=== PATIENT | male | born 1975 | race Caucasian/White ===

== ENCOUNTER 2020-08-22 14:14 | Emergency (ER) | payer OTHER, SELFPAY ==
--- NOTE | ~2020-08-22 | CT_ITS ---
EXAMINATION: CT HEAD/BRAIN WITHOUT CONTRAST CLINICAL INFORMATION: Headaches COMPARISON: August 25, 2018 TECHNIQUE: CT scanning from base of skull to vertex performed without IV contrast administration. DLP: 766 mGy-cm. FINDINGS: The ventricles, sulci, and cisterns appear unremarkable. No abnormal extra-axial fluid collection or intracranial hemorrhage is seen. No significant mass effect or midline structure shift is evident. There is some mild low density seen along the posterior aspect of the right extreme capsule which could possibly represent an old lacunar infarct but is equivocal. This appears to be present on previous CT scan of August 25, 2018. Visualized paranasal sinuses and mastoid air cells are well aerated. CT/CT cervical spine wo con IMPRESSION: No acute intracranial disease. EXAMINATION: CT OF THE CERVICAL SPINE CLINICAL INFORMATION: Neck pain COMPARISON: May 16, 2019. TECHNIQUE: Thin helical images with sagittal and coronal reformats. DOSE: DLP 742 mGy-cm. FINDINGS: No abnormal prevertebral soft tissue swelling is seen. No acute cervical spine fracture is noted. There is some mild degenerative change at the C6-C7 disc space level with mild spurring of the joints of Luschka causing some anterior neural foramina encroachment but not of a significant degree. Paraspinal fat planes are maintained. Pterygoid plates are intact. No significant abnormality upper mandibular joints noted. IMPRESSION: No significant bony abnormality of the cervical spine.
--- NOTE | ~2020-08-22 | CT_ITS ---
EXAMINATION: CT HEAD/BRAIN WITHOUT CONTRAST CLINICAL INFORMATION: Headaches COMPARISON: August 25, 2018 TECHNIQUE: CT scanning from base of skull to vertex performed without IV contrast administration. DLP: 766 mGy-cm. FINDINGS: The ventricles, sulci, and cisterns appear unremarkable. No abnormal extra-axial fluid collection or intracranial hemorrhage is seen. No significant mass effect or midline structure shift is evident. There is some mild low density seen along the posterior aspect of the right extreme capsule which could possibly represent an old lacunar infarct but is equivocal. This appears to be present on previous CT scan of August 25, 2018. Visualized paranasal sinuses and mastoid air cells are well aerated. CT/CT head/brain wo con IMPRESSION: No acute intracranial disease. EXAMINATION: CT OF THE CERVICAL SPINE CLINICAL INFORMATION: Neck pain COMPARISON: May 16, 2019. TECHNIQUE: Thin helical images with sagittal and coronal reformats. DOSE: DLP 742 mGy-cm. FINDINGS: No abnormal prevertebral soft tissue swelling is seen. No acute cervical spine fracture is noted. There is some mild degenerative change at the C6-C7 disc space level with mild spurring of the joints of Luschka causing some anterior neural foramina encroachment but not of a significant degree. Paraspinal fat planes are maintained. Pterygoid plates are intact. No significant abnormality upper mandibular joints noted. IMPRESSION: No significant bony abnormality of the cervical spine.
[2020-08-22 14:24] VITALS: BP 183/114; PULSE 120; RESP 18; TEMP 36.6; O2SAT 97; BMI 30.4
[2020-08-22 14:52] VITALS: BP 154/89; PULSE 90
--- NOTE | 2020-08-22 15:14 | ED.NECK ---
HPI - Neck Pain/Injury General Chief Complaint: Neck Pain/Injury Stated Complaint: neck swelling Time Seen by Provider: 08/22/20 15:01 History of Present Illness HPI Narrative: Patient with chronic neck pain complains that his pain has been exacerbated over the past 2 weeks, he also complains of feeling dizzy and anxious and having headaches, denies any new trauma, denies radiation of the pain denies any numbness or weakness or changes to bowel or bladder no fever chills The headache is described as a heavy feeling in the top of his head that is mildly painful that he has not had before, it is gradual in onset not associated with injury or fever, there is no vision change Related Data Previous Rx's Medication Instructions Recorded [id number] 3.3 4 drp OTIC (EAR) RIGHT QID #10 ml 03/23/20 mg-3 mg-10 mg-0.5 mg/mL ear drops,susp lisinopril 10 mg tablet 10 mg PO DAILY 90 Days #90 tab 05/19/20 trazodone 100 mg tablet 100 mg PO BEDTIME PRN 90 Days #90 06/06/20 tab diazepam 10 mg tablet 10 mg PO ONCE PRN 1 Days #1 tab 08/06/20 lidocaine 5 % topical patch 1 patch TOPICAL DAILY #15 ea 08/06/20 prednisone 20 mg tablet 20 mg PO DAILY 9 Days #18 tab 08/06/20 dexamethasone 4 mg tablet 4 mg PO .COMPLEX #18 tab 08/13/20 gabapentin 100 mg capsule 100 mg PO TID #90 cap 08/13/20 diazepam [Valium] 10 mg PO TID PRN #7 tab 08/22/20 ibuprofen 600 mg PO Q6H PRN #20 tab 08/22/20 oxycodone-acetaminophen [Percocet] 1 tab PO Q4-6H PRN #10 tab 08/22/20 Allergies Allergy/AdvReac Type Severity Reaction Status Date / Time No Known Allergies Allergy Verified 08/22/20 14:27 [No Known Allergies*] Review of Systems Review of Systems: Positive for neck pain negatives are no fever no chills no dizziness no weakness no vision change no photophobia no radiation of pain no numbness or weakness no changes to bowel or bladder no chest pain no shortness of breath no abdominal pain no nausea no vomiting no diarrhea no dysuria no incontinence no skin rash no numbness or weakness [facility] Past Medical History [facility] Narrative: Patient has long history of chronic neck pain with periodic flares Source: nursing notes reviewed Medical History (Updated 08/23/20 @ 00:01 by Crystal Li) No known health problems Social History Social History Advance Directives: Yes Advance Directives Information Provided: No Advance Directives on File: No Physical Exam Vital Signs: Vital Signs: Last Vital Signs Temp 97.8 F 08/22/20 14:24 Pulse 90 08/22/20 14:52 Resp 18 08/22/20 14:24 BP 154/89 H 08/22/20 14:52 Pulse Ox 97 08/22/20 14:24 Body Mass Index 30.4 General appearance no acute distress, uncomfortable, comp and cooperative Head is normocephalic atraumatic, pupils equal round reactive to light, extraocular motions intact The neck has tenderness both medial lateral soft tissue and midline, no masses palpated no redness or warmth to the skin, skin is intact, pain is easily reproduced with movement of the head The chest is clear to auscultation bilaterally full symmetrical breath sounds The chest wall is not tender The heart rate and rhythm regular no murmur Abdomen soft nontender Extremities full range of motion x4 Neuro comprehension and expression are normal, balance and gait are normal, motor is 5/5 x4, no motor deficit, sensation is intact and symmetrical in hands and feet, cerebellar is normal, cranial nerves 2-12 intact as tested, no facial asymmetry Course Course Course Narrative: CT scan of the neck showed some arthritis but no acute change no evidence of any mass The head CT was normal no mass no bleed Patient was treated for musculoskeletal neck pain, advised to follow up with primary doctor for possible referral to specialist and headache will be treated with analgesics as well, no sign of bleed or mass, no neurologic deficit Discharge Plan Discharge Clinical Impression: Posterior neck pain, Frequent headaches Patient Disposition: Home, Self-Care Additional Instructions: CT of the neck showed some arthritis and head CT was normal no sign of any acute or dangerous condition on either scan Follow with primary doctor for further evaluation Referral to pain management or to a speciallist may be helpful Return any concerns Prescriptions: New oxycodone-acetaminophen [Percocet] 5-325 mg tablet 1 tab PO Q4-6H PRN (Reason: pain) Qty: 10 RF: 0 diazepam [Valium] 10 mg tablet 10 mg PO TID PRN (Reason: muscle spasm) Qty: 7 RF: 0 ibuprofen 600 mg tablet 600 mg PO Q6H PRN (Reason: pain) Qty: 20 RF: 0 No Action Cortisporin-TC 3.3-3-10-0.5 mg/mL drops,suspension 4 drp otic (ear) right QID Qty: 10 RF: 0 lisinopril 10 mg tablet 10 mg PO DAILY 90 Days Qty: 90 RF: 3 trazodone 100 mg tablet 100 mg PO BEDTIME PRN (Reason: sleep) 90 Days Qty: 90 RF: 1 prednisone 20 mg tablet 20 mg PO DAILY 9 Days Qty: 18 RF: 0 lidocaine 5 % adhesive patch,medicated 1 patch topical DAILY Qty: 15 RF: 0 diazepam 10 mg tablet 10 mg PO ONCE PRN (Reason: testing anxiety) 1 Days Qty: 1 RF: 0 dexamethasone 4 mg tablet 4 mg PO .COMPLEX Qty: 18 RF: 0 gabapentin 100 mg capsule 100 mg PO TID Qty: 90 RF: 0 Interventions: ED Discharge Assessment Last Done: 08/22/20 17:11 Discharge Date/Time: 08/22/20 17:12
[2020-08-22] MEDS: Ketorolac Tromethamine 30 MG/ML VIAL IM (17:10)
== END 2020-08-22 17:12 | disposition home or self-care (01) ==
PROVIDERS: Emergency Provider Emergency Medicine; PCP Nurse Practitioner Family
DX: M54.2 Cervicalgia (principal); R51.9 Headache, unspecified; F41.9 Anxiety disorder, unspecified
CPT/HCPCS: 70450; 72125; 96372; 99284; J1885

== ENCOUNTER 2020-11-20 09:22 | Outpatient (REF) | payer OTHER, SELFPAY ==
[2020-11-20 11:52] LABS: Alanine Aminotransferase 29 U/L (0-40); Albumin Level 4.7 g/dL (3.5-5.0); Alkaline Phosphatase 72 U/L (39-117); Anion Gap 16 (12-20); Aspartate Amino Transferase 27 U/L (5-37); Bilirubin Total 0.3 mg/dL (0.0-1.0); Blood Urea Nitrogen 12 mg/dL (9-16); Calcium 9.9 mg/dL (8.4-10.2); Carbon Dioxide 23 mmol/L (22-29); Chloride 106 mmol/L (96-108); Cholesterol 315 mg/dL; Estimated Glomerular Filt Rate > 60; Glucose Fasting 151 mg/dL (60-99); HDL Cholesterol 48 mg/dL; LDL Cholesterol Calculated 195 mg/dl; Potassium 3.9 mmol/L (3.3-5.1); Sodium 141 mmol/L (135-145); Total Protein 7.8 g/dL (6.5-8.0); Triglycerides 362 mg/dL
[2020-11-20 12:16] LABS: TSH reflex Free T4 1.14 uIU/mL (0.32-4.0)
== END 2020-11-20 09:23 | disposition home or self-care (01) ==
LOC: HO.HMGCLDS 09:22
PROVIDERS: PCP Nurse Practitioner Family; Visit Provider Nurse Practitioner Family
DX: I10 Essential (primary) hypertension (principal)
CPT/HCPCS: 36415; 80053; 80061; 84443

== ENCOUNTER 2020-12-13 14:15 | Outpatient (REF) | payer OTHER, SELFPAY ==
[2020-12-13 17:07] LABS: Estimated Average Glucose 194 mg/dL; Hemoglobin A1c % 8.4 %
[2020-12-13 17:15] LABS: Cholesterol 362 mg/dL; HDL Cholesterol 46 mg/dL; Triglycerides 447 mg/dL
== END 2020-12-13 14:16 | disposition home or self-care (01) ==
LOC: HO.HMGCLDS 14:15
PROVIDERS: PCP Nurse Practitioner Family; Visit Provider Nurse Practitioner Family
DX: E78.5 Hyperlipidemia, unspecified (principal); R73.01 Impaired fasting glucose
CPT/HCPCS: 36415; 80061; 83036

== ENCOUNTER 2021-08-11 11:51 | Outpatient (REF) | payer OTHER, SELFPAY ==
[2021-08-11 13:51] LABS: Appearance Urine CLEAR; Color Urine YELLOW; Glucose Urine UA NEG (NEG); Leukocyte Esterase Urine NEG (NEG); Nitrite Urine NEG (NEG); PH 5.5 (5.0-8.0); Specific Gravity - Urine >= 1.030 (1.005-1.025); Urine Blood NEG (NEG); Urine Ketones NEG (NEG); Urine Protein NEG (NEG-TRACE)
[2021-08-11 14:11] LABS: Alanine Aminotransferase 21 U/L (0-40); Albumin Level 4.5 g/dL (3.5-5.0); Alkaline Phosphatase 64 U/L (39-117); Anion Gap 15 (12-20); Aspartate Amino Transferase 20 U/L (5-37); Bilirubin Total 0.5 mg/dL (0.0-1.0); Blood Urea Nitrogen 30 mg/dL (9-16); Calcium 10.3 mg/dL (8.4-10.2); Carbon Dioxide 20 mmol/L (22-29); Chloride 104 mmol/L (96-108); Cholesterol 175 mg/dL; Estimated Glomerular Filt Rate 54; Glucose Fasting 139 mg/dL (60-99); HDL Cholesterol 48 mg/dL; LDL Cholesterol Calculated 104 mg/dl; Potassium 4.1 mmol/L (3.3-5.1); Sodium 135 mmol/L (135-145); Total Protein 7.9 g/dL (6.5-8.0); Triglycerides 117 mg/dL
[2021-08-11 14:32] LABS: TSH reflex Free T4 0.75 uIU/mL (0.32-4.0)
[2021-08-11 14:42] LABS: Estimated Average Glucose 134 mg/dL; Hemoglobin A1c % 6.3 %
[2021-08-11 14:54] LABS: Creatinine Urine 211.02 mg/dL; Microalbum/Creatinine Ratio Ur 6.6 ug/mg cr
== END 2021-08-11 11:52 | disposition home or self-care (01) ==
LOC: HO.HMGCLDS 11:51
PROVIDERS: PCP Nurse Practitioner Family; Visit Provider Nurse Practitioner Family
DX: E11.9 Type 2 diabetes mellitus without complications (principal)
CPT/HCPCS: 36415; 80053; 80061; 81003; 82043; 83036; 84443

== ENCOUNTER → 2021-10-02 14:30 | Outpatient (RCR) | payer OTHER, SELFPAY | END | disposition home or self-care (01) | LOC: HO.PTCHIC 09-24 14:06 | PROVIDERS: PCP Nurse Practitioner Family; Visit Provider Nurse Practitioner Family | DX: M50.90 Cervical disc disorder, unspecified, unspecified cervical region (principal) ==

== ENCOUNTER 2021-11-12 11:29 | Outpatient (REF) | payer OTHER, SELFPAY ==
--- NOTE | ~2021-11-12 | XR_ITS ---
EXAMINATION: XR LUMBOSACRAL SPINE CLINICAL INFORMATION: Low back pain. COMPARISON: 05/16/2019 TECHNIQUE: Three views of the lumbosacral spine. FINDINGS: Relative straightening of the lumbar lordosis. No change in minimal retrolisthesis of L5 on S1. Vertebral body heights and intervertebral disc spaces are maintained. Sacroiliac joints are intact. XR/XR lumbar spine 2-3V IMPRESSION: No acute abnormality.
== END 2021-11-12 11:30 | disposition home or self-care (01) ==
LOC: HO.HMGCX 11:29
PROVIDERS: Visit Provider Nurse Practitioner Family
DX: M54.50 Low back pain, unspecified (principal); E11.9 Type 2 diabetes mellitus without complications
CPT/HCPCS: 72100

== ENCOUNTER 2023-01-18 08:09 | Outpatient (REF) | payer OTHER, SELFPAY ==
[2023-01-18 11:27] LABS: MANUAL DIFF FLAG NO
[2023-01-18 11:38] LABS: Appearance Urine Clear; Color Urine Yellow; Glucose Urine UA Negative (Negative); Leukocyte Esterase Urine Negative (Negative); Nitrite Urine Negative (Negative); PH 5.5 (5.0-9.0); Urine Blood Negative (Negative); Urine Ketones Negative (Negative); Urine Protein Negative (Neg-Trace)
[2023-01-18 12:05] LABS: Basophils Absolute Auto 0.1 X10*3/uL (0.0-0.2); Eosinophils Absolute Auto 0.4 X10*3/uL (0.0-0.4); Eosinophils Percent Auto 4.9 % (0-4); Hematocrit 46.9 % (42.0-52.0); Hemoglobin 15.8 g/dl (14.0-18.0); Imm Gran Abs Auto 0.02 X10*3/uL (0.00-0.03); Imm Gran Pct Auto 0.3 % (0.0-0.4); Lymphocytes Absolute Auto 3.4 X10*3/uL (1.2-4.9); Lymphocytes Percent Auto 44.4 % (20-40); Mean Corpuscular HGB Conc 33.7 g/dl (31.0-36.0); Mean Corpuscular Hemoglobin 28.7 pg (27.0-33.0); Mean Corpuscular Volume 85.3 fL (80.0-98.0); Mean Platelet Volume 11.1 fL (9.4-12.4); Monocytes Absolute Auto 0.7 X10*3/uL (0.1-1.2); Monocytes Percent Auto 9.3 % (2-11); Neutrophils Absolute Auto 3.1 x10*3/uL (2.0-8.3); Neutrophils Percent Auto 40.1 % (45-73); Platelet Count 230 X10*3/uL (160-400); Red Cell Distribution Width 13.4 % (11.0-16.0); White Blood Count 7.7 X10*3/uL (4.8-10.8)
[2023-01-18 12:27] LABS: Alanine Aminotransferase 16 U/L (0-40); Albumin Level 4.3 g/dL (3.5-5.0); Alkaline Phosphatase 78 U/L (39-117); Anion Gap 11 (12-20); Aspartate Amino Transferase 21 U/L (5-37); Bilirubin Total 0.3 mg/dL (0.0-1.0); Blood Urea Nitrogen 12 mg/dL (9-16); Calcium 10.2 mg/dL (8.4-10.2); Carbon Dioxide 25 mmol/L (22-29); Chloride 107 mmol/L (96-108); Cholesterol 267 mg/dL (<200); Estimated Glomerular Filt Rate > 60; Glucose Fasting 126 mg/dL (60-99); HDL Cholesterol 36 mg/dL (>40); LDL Cholesterol Calculated 198 mg/dL (<100); Potassium 3.9 mmol/L (3.3-5.1); Sodium 139 mmol/L (135-145); Total Protein 7.6 g/dL (6.5-8.0); Triglycerides 167 mg/dL (<150)
[2023-01-18 12:31] LABS: TSH reflex Free T4 1.66 uIU/mL (0.32-4.0)
[2023-01-18 12:46] LABS: Estimated Average Glucose 131 mg/dL; Hemoglobin A1c % 6.2 % (<6.0)
== END 2023-01-18 08:10 | disposition home or self-care (01) ==
LOC: HO.HMGCLDS 08:09
PROVIDERS: PCP Nurse Practitioner Family; Visit Provider Nurse Practitioner Family
DX: E11.9 Type 2 diabetes mellitus without complications (principal)
CPT/HCPCS: 36415; 80053; 80061; 81003; 83036; 84443; 85025

== ENCOUNTER 2023-01-28 07:36 | Outpatient (AMB) | payer OTHER, SELFPAY ==
--- NOTE | 2023-01-28 07:39 | MHC.PC.OV ---
Vital Signs 01/28/23 07:40 Height 5 ft 8 in Weight 191 lb 4 oz BMI 29.1 BP 102/74 Blood Pressure Location Rt brachial Position Sitting Pulse 69 Pulse Source Pulse Oximeter Pulse Oximetry (%) 96 Oxygen Delivery Method Room Air Intake Visit Reasons: Physical exam Allergies No Known Allergies [No Known Allergies*] Allergy (Verified 01/28/23 07:41) Medication List - Last Reconciled 01/28/23 by MICHAEL Davison alcohol swabs (Alcohol Pads) 1 pad topical BID 30 days amlodipine 10 mg PO DAILY atorvastatin 80 mg PO BEDTIME 90 days blood sugar diagnostic (FreeStyle Lite Strips) test BS BID blood-glucose meter (FreeStyle Lite Meter kit) As directed blood-glucose meter (FreeStyle Lite Meter kit) test BS BID hydrochlorothiazide 12.5 mg PO DAILY ibuprofen 600 mg PO Q6H PRN lancets (FreeStyle Lancets) test BS BID lidocaine 5% 1 patch topical DAILY lisinopril 20 mg PO DAILY 90 days metformin 500 mg PO BID trazodone 100 mg PO BEDTIME PRN 90 days Tobacco use date assessed: 01/28/23 Dental Screening Dental Screen Date: 01/28/23 Did you have a dental visit in the last 12 months?: No Did you have a dental problem in the last 6 months where you did not have access to dental care?: No Was dental information given to patient?: No HPI Physical exam HPI Details Pt is here for a PE. Labs were already performed. Due for colon screen, will refer to GI. Pt is a diabetic, on an ASHWIN and a statin. Last A1C was 6.2. Due for microalbumin. Denies polyuria, polydipsia, does report intermittent neuropathy. Pt denies any signs and symptoms of hypoglycemia and does know how to correct it. Dyslipidemia: Pt's lipids were elevated. He reports that he does not take his atorvastatin 80mg every day, reenforced importance of this. Will also send zetia 10mg. Pt c/o dizziness upon standing. ? hypotension. Will decrease lisinopril from 20mg to 10mg. SS/disability paperwork filled out for his cervical neck issues. He currently follows up with [facility]. [facility] Medical History (Updated 01/28/23 @ 08:56 by MICHAEL Davison) Bulging discs DDD (degenerative disc disease), cervical No known health problems Polyneuropathy Social History Housing: Apartment Alcohol intake: former Patient Tobacco Use Status: Former Tobacco user Years Smoked: quit 10 years or more e-Cigarette/Vaping Use: Never Used Second Hand Smoke Exposure: No Current occupational status: disabled Cognitive needs: No Hearing needs: No Vision needs: No Questionnaire Thrive Questionnaire Date Thrive assessed: 08/11/21 AUDIT C Alcohol Use Questionnaire (AUDIT-C) 1. How often do you have a drink containing alcohol?: Never Total Score: 0 DANY-7 AMB Questionnaire DANY-7 Date DANY - 7 assessed: 08/11/21 Source: Developed by Drs. Guicho Greenwood, Jeniffer Fitzpatrick, Austin Limon and colleagues, with an educational osmin from [employer]. Review of Systems Const Denies chills and Denies fever(s) Eyes Denies blurry vision ENT Denies vertigo, Reports dizziness and Denies sore throat Card Denies chest pain at rest, Denies chest pain with activity, Denies diaphoresis, Denies dyspnea and Denies dyspnea on exertion Resp Denies cough, Denies dyspnea, Denies dyspnea on exertion and Denies wheezing GI Denies abdominal pain, Denies melena, Denies hematochezia, Denies constipation, Denies diarrhea and Denies loose stools Denies hematuria Musc Reports numbness and Reports tingling Skin/Breast Denies lesions Neuro Denies vertigo, Reports dizziness, Reports numbness and Reports tingling Psych Denies anxiety, Denies depression, Denies homicidal ideation, Denies suicidal ideation and Denies other (substance abuse) Aller/Immun Denies wheezing Physical exam (Primary Care) Vital Signs: Last Vital Signs Pulse 69 01/28/23 07:40 BP 102/74 01/28/23 07:40 Pulse Ox 96 01/28/23 07:40 Oxygen Delivery Method Room Air 01/28/23 07:40 BMI result Body Mass Index 29.1 Tobacco/Smoking Status: Tobacco use Status Tobacco use date assessed 01/28/23 01/28/23 07:43 Patient Tobacco Use Status Former Tobacco user 01/28/23 07:43 e-Cigarette/Vaping Use Never Used 01/28/23 07:43 Thrive Assessment: Date of Thrive Assessment Date Thrive assessed 08/11/21 01/28/23 07:43 Const General: cooperative Nutritional Appearance: well nourished Orientation/consciousness: patient oriented x3 HENMT Head: Yes normal to inspection, Yes normocephalic and Yes atraumatic Ears: TM's normal bilaterally Eyes General: appearance normal, both eyes and all related structures Alignment and Position: alignment normal and position normal Neck Neck: Yes normal visual inspection and Yes no lymphadenopathy Thyroid: Thyroid normal Resp Effort & Inspection: normal respiratory effort Auscultation: clear to auscultation bilaterally Cardio Rate: regular rate Rhythm: regular rhythm Heart sounds: S1 normal heart sound present, S2 normal heart sound present and no murmurs GI Palpation (GI): Soft to palpation and nontender Auscultation: normal bowel sounds Male General Exam: Yes normal external exam Penis: normal penis Scrotum: scrotum normal, testes descended bilaterally and no inguinal hernias Testes: no testicular mass Skin Rashes: no rashes Neuro General: patient oriented x3, moves all extremities, no focal motor deficits and deep tendon reflexes 2+ bilaterally Romberg Test: Negative Extrem Other: bilat feet: + sensation with use of monofilament Psych Appearance: grossly normal Mental Status: mental status grossly normal Speech and movement: Normal speech and movement present Affect: normal affect Attitude: cooperative Thought process: Normal thought process present Thought content: Normal thought content present Insight: Good insight present (Psych) Judgement: Good judgement present (Psych) Assessment and Plan Assessment & Plan (1) Screening for colon cancer: Code(s): Z12.11 - Encounter for screening for malignant neoplasm of colon Plan: Referred to GI (2) DDD (degenerative disc disease), cervical: Code(s): M50.30 - Other cervical disc degeneration, unspecified cervical region (3) Cervical neck pain with evidence of disc disease: Code(s): M50.90 - Cervical disc disorder, unspecified, unspecified cervical region (4) Hypotension: Code(s): I95.9 - Hypotension, unspecified (5) Dyslipidemia: Code(s): E78.5 - Hyperlipidemia, unspecified (6) Physical exam: Code(s): Z00.00 - Encounter for general adult medical examination without abnormal findings Plan The patient agreed to the use of a biomedical engineering supervisor for this encounter. Scribed for Apolinar Hicks, [employer]ERK- by Cristal Butler biomedical engineering supervisor, on 01/28/2023 at 07:50 EST. Orders: Orders Microalbumin, Random (w Creat) Today E11.9 - Type 2 diabetes mellitus without complications Comprehensive [place]. Panel Fast 2 Months E78.5 - Hyperlipidemia, unspecified Lipid Panel 2 Months E78.5 - Hyperlipidemia, unspecified Referrals Gastroenterology Referral Z12.11 - Encounter for screening for malignant neoplasm of colon Medications: New ezetimibe 10 mg PO DAILY 90 days 90 tabs 0RF Changed From lisinopril 20 mg PO DAILY 90 days 90 tabs 1RF I10 - Essential (primary) hypertension To lisinopril 10 mg PO DAILY 90 days 90 tabs 1RF I10 - Essential (primary) hypertension Coding Level of Care Code Est Pt Prev Care 40-64y(45273) Diagnoses Screening for colon cancer Z12.11 DDD (degenerative disc disease), cervical M50.30 Cervical neck pain with evidence of disc disease M50.90 Hypotension I95.9 Dyslipidemia E78.5 Physical exam Z00.00
[2023-01-28 07:40] VITALS: BP 102/74; PULSE 69; O2SAT 96; BMI 29.1
== END 2023-01-28 08:22 | disposition home or self-care (01) ==
PROVIDERS: Visit Provider Nurse Practitioner Family
DX: Z12.11 Encounter for screening for malignant neoplasm of colon (principal); M50.30 Other cervical disc degeneration, unspecified cervical region; M50.90 Cervical disc disorder, unspecified, unspecified cervical region; I95.9 Hypotension, unspecified; E78.5 Hyperlipidemia, unspecified; Z00.00 Encounter for general adult medical examination without abnormal findings
CPT/HCPCS: 99396

== ENCOUNTER 2023-01-28 08:23 | Outpatient (REF) | payer OTHER, SELFPAY ==
[2023-01-28 12:53] LABS: Microalbumin Urine < 5.0 mg/L
== END 2023-01-28 08:24 | disposition home or self-care (01) ==
LOC: HO.HMGCLDS 08:23
PROVIDERS: PCP Nurse Practitioner Family; Visit Provider Nurse Practitioner Family
DX: E11.9 Type 2 diabetes mellitus without complications (principal)
CPT/HCPCS: 82043

== ENCOUNTER 2023-02-17 11:23 | Outpatient (AMB) | payer OTHER, SELFPAY ==
--- NOTE | 2023-02-17 11:25 | A.OFFVIS_ITS ---
Intake Vital Signs 02/17/23 11:27 Height 5 ft 8 in Weight 187 lb 13.341 oz BMI 28.6 BP 140/78 H Blood Pressure Location Lt brachial Position Sitting Pulse 74 Pulse Source Pulse Oximeter Pulse Oximetry (%) 98 Intake Visit Reasons: [place] screening Intake Note: Patient here in the office for a consult for the colonoscopy screening Allergies No Known Allergies [No Known Allergies*] Allergy (Verified 02/17/23 11:32) HPI [place] screening HPI Details 47 year old? male with past medical hist ory of hypertension, dyslipidemia, cervical neck pain, degenerative disc disease, diabetes, bulging disc is here today for pre colonoscopy screening.? Patient was sent to us by his PCP.? This is his first colonoscopy screening.? Patient denies any gastrointestinal symptoms in the past or at present.? Denies any personal or family history of gastrointestinal disease, colon polyps, or cancer.? Denies history of difficulty with sedation or anesthesia in the past.? Negative for history of sleep apnea.? Denies any history of cardiac, renal, pulmonary, or hepatic disease.?? No history of infectious? diseases like hepatitis A, B, C, HIV or tuberculosis.? Patient is not on any anticoagulation therapy. [facility] Medical History (Updated 01/28/23 @ 08:56 by MICHAEL Davison) Polyneuropathy Bulging discs DDD (degenerative disc disease), cervical No known health problems Social History Housing: Apartment Alcohol intake: former Patient Tobacco Use Status: Former Tobacco user Years Smoked: quit 10 years or more e-Cigarette/Vaping Use: Never Used Second Hand Smoke Exposure: No Current occupational status: disabled Cognitive needs: No Hearing needs: No Vision needs: No Review of Systems Const Denies weight gain and Denies weight loss ENT Reports no additional complaints, Denies dysphagia, Reports neck pain and Denies odynophagia Card Reports no additional complaints Resp Reports no additional complaints GI Denies abdominal pain, Denies belching, Denies melena, Denies bloating, Denies change in bowel habits, Denies dysphagia, Denies excessive flatus, Denies dyspepsia, Denies heartburn, Denies diarrhea, Denies loose stools, Denies nausea, Denies odynophagia and Denies vomiting Reports no additional complaints Musc Reports no additional complaints and Reports neck pain Neuro Reports no additional complaints Psych Reports no additional complaints Endo Reports no additional complaints Physical Exam Vital Signs: Last Vital Signs Pulse 74 02/17/23 11:27 BP 140/78 H 02/17/23 11:27 Pulse Ox 98 02/17/23 11:27 BMI result Body Mass Index 28.6 Const General: healthy appearing, no acute distress and well developed Nutritional Appearance: obese Orientation/consciousness: patient oriented x3 HEENT Head: Yes normal to inspection, Yes normocephalic and Yes atraumatic Face and sinus: Yes normal facial exam Mouth: Normal oral and palatal mucosa present Throat: Yes posterior oropharynx normal, Yes tonsils normal and Yes uvula midline Eyes General: appearance normal, both eyes and all related structures Neck Neck: Yes normal visual inspection, Yes full ROM and Yes trachea midline Thyroid: Thyroid normal Resp Effort & Inspection: normal respiratory effort, able to speak in complete sentences, no tracheal deviation and symmetric chest movement Auscultation: clear to auscultation bilaterally Cardio Rate: regular rate Heart sounds: S1 normal heart sound present and S2 normal heart sound present GI Inspection: Yes normal to inspection, No distended and Yes obesity Palpation (GI): Soft to palpation, not firm, nontender and No hepatosplenomegaly present Auscultation: normal bowel sounds General: Yes no CVA tenderness Back/Spine/Pelvis Back: no CVA tenderness Skin General skin exam: elasticity normal, turgor normal and dry skin Neuro General: patient oriented x3 Psych Appearance: grossly normal Mental Status: mental status grossly normal Assessment & Plan Assessment & Plan (1) Screening for colon cancer: Code(s): Z12.11 - Encounter for screening for malignant neoplasm of colon Plan: Patient denies any GI, cardiac or respiratory symptoms.? Denies any issues with anesthesia in the past.? Denies any history of sleep apnea.? No history infectious diseases in the past or present.? Not on any anticoagulation therapy.? No family or personal history of colon cancer or polyps.? Patient denies melena, hematochezia, unintentional weight loss or ribbon like stools.? Discussed at length the pre-procedure,? prep, diet & medications as well as what to expect prior, during and after the procedure.?? Stressed the importance of good bowel prep. ?Recommended the use of Vaseline or Calmoseptine OTC & baby wipes with bowel movements to promote comfort.? ?Patient verbalizes understanding and agrees to plan of care.? He was given the opportunity to ask questions and all questions answered.? We will see him after the procedure.? Medications: New bisacodyl (Dulcolax (bisacodyl)) take 2 tabs at noon the day before your colonoscopy 10 mg (2 x 5 mg) PO ONCE 1 day 2 tabs 0RF Z12.11 - Encounter for screening for malignant neoplasm of colon polyethylene glycol 3350 (Miralax) As directed by gastroenterology department at [facility] 238 grams PO ONCE 238 grams 0RF Z12.11 - Encounter for screening for malignant neoplasm of colon Coding Level of Care Code New Pt Level 3 (19533) Diagnoses Screening for colon cancer Z12.11 Time Spent (min) 40 Comment 30 minutes spent with patient and additional 10 minutes spent reviewing his records
[2023-02-17 11:27] VITALS: BP 140/78; PULSE 74; O2SAT 98; BMI 28.6
== END 2023-02-17 12:20 | disposition home or self-care (01) ==
PROVIDERS: PCP Nurse Practitioner Family; Visit Provider Nurse Practitioner Family
DX: Z12.11 Encounter for screening for malignant neoplasm of colon (principal); Z01.818 Encounter for other preprocedural examination
CPT/HCPCS: 99203

== ENCOUNTER → 2023-02-17 11:23 | Outpatient (BNVA) | payer OTHER, SELFPAY | PROVIDERS: PCP Nurse Practitioner Family; Visit Provider Nurse Practitioner Family ==

== ENCOUNTER 2023-06-10 08:38 | Outpatient (AMB) | payer OTHER, SELFPAY ==
--- NOTE | 2023-06-10 08:42 | MHC.PC.OV ---
Vital Signs 06/10/23 08:45 06/10/23 09:12 Weight 182 lb BP 130/90 H 128/80 Blood Pressure Location Rt brachial Lt brachial Position Sitting Sitting Pulse 72 Pulse Source Pulse Oximeter Pulse Oximetry (%) 99 Oxygen Delivery Method Room Air Intake Visit Reasons: bilateral foot pain,pinched nerve Intake Note: Patient here for low back pain that has been radiating down both legs and feet which has been going for a while now but now it is constant. Allergies No Known Allergies [No Known Allergies*] Allergy (Verified 06/10/23 08:47) Tobacco use date assessed: 06/10/23 Dental Screening Dental Screen Date: 06/10/23 Did you have a dental visit in the last 12 months?: No Did you have a dental problem in the last 6 months where you did not have access to dental care?: No Was dental information given to patient?: Patient has dentist HPI bilateral foot pain,pinched nerve HPI Details Pt c/o lower back pain with radicular symptoms down his BLE. He reports shooting pains down both of his legs to his feet. Previous lumbar XR was negative. He has tried PT in the past with no relief. Will order MRI. Denies any signs of cauda equina. Pt is a diabetic, on an ASHWIN and a statin. He reports that his blood sugar has been ranging from 100-130. [facility] Medical History (Updated 06/10/23 @ 08:59 by MOLLY DavisonPEGGY) Hypertensive retinopathy Polyneuropathy Bulging discs DDD (degenerative disc disease), cervical No known health problems Social History Housing: Apartment Alcohol intake: former Patient Tobacco Use Status: Former Tobacco user Years Smoked: quit 10 years or more e-Cigarette/Vaping Use: Never Used Second Hand Smoke Exposure: No service: No Current occupational status: disabled Cognitive needs: No Hearing needs: No Vision needs: No Questionnaire Thrive Questionnaire Date Thrive assessed: 08/11/21 AUDIT C Alcohol Use Questionnaire (AUDIT-C) 1. How often do you have a drink containing alcohol?: Never 3. How often do you have six or more drinks on one occasion?: Never Total Score: 0 Score Reviewed/Action Taken: No DANY-7 AMB Questionnaire DANY-7 Date DANY - 7 assessed: 08/11/21 Source: Developed by Drs. Guicho Greenwood, Jeniffer Fitzpatrick, Austin Limon and colleagues, with an educational osmin from [employer]. Review of Systems Const Reports as per HPI Physical exam (Primary Care) Vital Signs: Last Vital Signs Pulse 72 06/10/23 08:45 BP 128/84 06/10/23 08:58 Pulse Ox 99 06/10/23 08:45 Oxygen Delivery Method Room Air 06/10/23 08:45 Tobacco/Smoking Status: Tobacco use Status Tobacco use date assessed 06/10/23 06/10/23 08:49 Patient Tobacco Use Status Former Tobacco user 06/10/23 08:44 e-Cigarette/Vaping Use Never Used 06/10/23 08:44 Thrive Assessment: Date of Thrive Assessment Date Thrive assessed 08/11/21 06/10/23 08:44 Const General: cooperative Orientation/consciousness: patient oriented x3 Resp Effort & Inspection: normal respiratory effort Auscultation: clear to auscultation bilaterally Cardio Rate: regular rate Rhythm: regular rhythm Heart sounds: S1 normal heart sound present and S2 normal heart sound present Back/Spine/Pelvis Other: tenderness with palpation of lower back, lower back pain with radicular symptoms exacerbated with heel and toe walking and with BLE raises with pt in supine position Neuro General: patient oriented x3 Extrem Other: + dorsalis pedis pulses, + patellar reflexes Psych Appearance: grossly normal Mental Status: mental status grossly normal Speech and movement: Normal speech and movement present Affect: normal affect Attitude: cooperative Thought process: Normal thought process present Thought content: Normal thought content present Insight: Good insight present (Psych) Judgement: Good judgement present (Psych) Assessment and Plan Assessment & Plan (1) Lumbar back pain with radiculopathy affecting left lower extremity: Code(s): M54.16 - Radiculopathy, lumbar region (2) Lumbar back pain with radiculopathy affecting right lower extremity: Code(s): M54.16 - Radiculopathy, lumbar region Plan: MRI ordered (3) Diabetes: Code(s): E11.9 - Type 2 diabetes mellitus without complications Plan: lab work ordered Plan The patient agreed to the use of a medical csr for this encounter. Scribed for MICHAEL Hernandez by Cristal Butler, medical csr, on 06/10/2023 at 08:55 EST. Orders: Orders TSH reflex Free T4 Today E11.9 - Type 2 diabetes mellitus without complications MR lumbar spine wo con Today M54.16 - Radiculopathy, lumbar region Lipid Panel Today E11.9 - Type 2 diabetes mellitus without complications Comprehensive [place]. Panel Fast Today E11.9 - Type 2 diabetes mellitus without complications Complete Blood Count Auto Diff Today E11.9 - Type 2 diabetes mellitus without complications UA CC w/rflx Micro + Cult Today E11.9 - Type 2 diabetes mellitus without complications Hemoglobin A1c Today E11.9 - Type 2 diabetes mellitus without complications Coding Level of Care Code Est Pt Level 3 (38995) Diagnoses Lumbar back pain with radiculopathy affecting left lower extremity M54.16 Lumbar back pain with radiculopathy affecting right lower extremity M54.16 Diabetes E11.9
[2023-06-10 08:45] VITALS: BP 130/90; PULSE 72; O2SAT 99
[2023-06-10 09:12] VITALS: BP 128/80
== END 2023-06-10 09:39 | disposition home or self-care (01) ==
PROVIDERS: PCP Nurse Practitioner Family; Visit Provider Nurse Practitioner Family
DX: M54.16 Radiculopathy, lumbar region (principal); E11.9 Type 2 diabetes mellitus without complications
CPT/HCPCS: 99213

== ENCOUNTER 2023-06-10 09:22 | Outpatient (REF) | payer OTHER, SELFPAY ==
[2023-06-10 11:36] LABS: MANUAL DIFF FLAG NO
[2023-06-10 11:47] LABS: Basophils Absolute Auto 0.1 X10*3/uL (0.0-0.2); Basophils Percent Auto 1.4 % (0-2); Eosinophils Absolute Auto 0.2 X10*3/uL (0.0-0.4); Eosinophils Percent Auto 3.5 % (0-4); Hematocrit 49.9 % (42.0-52.0); Hemoglobin 16.6 g/dl (14.0-18.0); Imm Gran Abs Auto 0.03 X10*3/uL (0.00-0.03); Imm Gran Pct Auto 0.5 % (0.0-0.4); Lymphocytes Absolute Auto 1.9 X10*3/uL (1.2-4.9); Lymphocytes Percent Auto 28.8 % (20-40); Mean Corpuscular HGB Conc 33.3 g/dl (31.0-36.0); Mean Corpuscular Hemoglobin 29.6 pg (27.0-33.0); Mean Corpuscular Volume 88.9 fL (80.0-98.0); Mean Platelet Volume 11.3 fL (9.4-12.4); Monocytes Absolute Auto 0.6 X10*3/uL (0.1-1.2); Monocytes Percent Auto 8.6 % (2-11); Neutrophils Absolute Auto 3.7 x10*3/uL (2.0-8.3); Neutrophils Percent Auto 57.2 % (45-73); Platelet Count 224 X10*3/uL (160-400); Red Blood Count 5.61 X10*6/uL (4.60-5.80); Red Cell Distribution Width 13.7 % (11.0-16.0); White Blood Count 6.5 X10*3/uL (4.8-10.8)
[2023-06-10 12:01] LABS: Estimated Average Glucose 117 mg/dL; Hemoglobin A1c % 5.7 % (<6.0)
[2023-06-10 12:08] LABS: Appearance Urine Clear; Color Urine Yellow; Glucose Urine UA Negative (Negative); Leukocyte Esterase Urine Negative (Negative); Nitrite Urine Negative (Negative); PH 5.5 (5.0-9.0); Urine Blood Negative (Negative); Urine Ketones Negative (Negative); Urine Protein Negative (Neg-Trace)
[2023-06-10 12:18] LABS: Alanine Aminotransferase 15 U/L (0-40); Albumin Level 4.2 g/dL (3.5-5.0); Alkaline Phosphatase 70 U/L (39-117); Anion Gap 10 (12-20); Aspartate Amino Transferase 19 U/L (5-37); Bilirubin Total 0.4 mg/dL (0.0-1.0); Blood Urea Nitrogen 10 mg/dL (9-16); Calcium 9.7 mg/dL (8.4-10.2); Carbon Dioxide 26 mmol/L (22-29); Chloride 106 mmol/L (96-108); Cholesterol 214 mg/dL (<200); Estimated Glomerular Filt Rate > 60; Glucose Fasting 118 mg/dL (60-99); HDL Cholesterol 40 mg/dL (>40); LDL Cholesterol Calculated 156 mg/dL (<100); Potassium 3.9 mmol/L (3.3-5.1); Sodium 138 mmol/L (135-145); Total Protein 7.4 g/dL (6.5-8.0); Triglycerides 94 mg/dL (<150)
[2023-06-10 12:43] LABS: TSH reflex Free T4 1.22 uIU/mL (0.32-4.0)
== END 2023-06-10 09:23 | disposition home or self-care (01) ==
LOC: HO.HMGCLDS 09:22
PROVIDERS: PCP Nurse Practitioner Family; Visit Provider Nurse Practitioner Family
DX: E11.9 Type 2 diabetes mellitus without complications (principal); E78.5 Hyperlipidemia, unspecified
CPT/HCPCS: 36415; 80053; 80061; 81003; 83036; 84443; 85025